=== PATIENT | female | born 1960 | race Caucasian/White ===

== ENCOUNTER 2019-11-07 22:12 | Emergency (ER) | payer BC, OTHER ==
[2019-11-07] MEDS ORDERED: TETRACAINE HCL 0.5% OPH SOLN 4 ML OD ONE (23:38)
[2019-11-07] MEDS ORDERED: DIPH/PERTUSS(ACELL)/TETANUS VAC/PF 0.5 ML SYR (>=10YO) IM ONE (23:56)
[2019-11-07] MEDS ORDERED: TOBRAMYCIN SULFATE/DEXAMETH OPH OINTMENT 3.5 GM OD ONE (23:57)
--- NOTE | 2019-11-08 00:03 | ER Document Report ---
ED Eye Complaint - General Chief Complaint: Eye Pain Stated Complaint: RIGHT EYE PAIN Time Seen by Provider: 11/07/19 23:37 Notes: CHIEF COMPLAINT: Right eye injury HPI: 59-year-old female presenting to the emergency department complaining of right eye injury tonight. Patient got soap in her right eye and while she was attempting to rinse the eye believe she may have scratched the eye it hurts to open the eye. She has had tearing discharge. Reports some blurred vision when looking down ROS: See HPI - all other systems were reviewed and are otherwise negative Constitutional: no fever Eyes: no drainage, + blurred vision, positive tearing ENT: no runny nose, no sore throat Integumentary: no rash Allergy: no hives MEDICATIONS: I agree with the patient medications as charted by the RN. ALLERGIES: I agree with the allergies as charted by the RN. PAST MEDICAL HISTORY/PAST SURGICAL HISTORY: Reviewed and agree as charted by RN. SOCIAL HISTORY: Reviewed and agree as charted by RN. FAMILY HISTORY: No significant familial comorbid conditions directly related to patient complaint EXAM: Reviewed vital signs as charted by RN. CONSTITUTIONAL: Alert and oriented and responds appropriately to questions. Well-appearing; well-nourished HEAD: Normocephalic; atraumatic EYES: PERRL; Conjunctivae injected right eye, sclerae non-icteric. No hyphema. Funduscopic exam does not reveal evidence of disc edema or hemorrhage. There is a small corneal abrasion in the right eye at approximately 5:00 over the edge of the iris. There does appear to be some fluorescein uptake over the lower half of the iris and lower sclera likely from chemical irritation from the soap ENT: normal nose; no rhinorrhea; moist mucous membranes; pharynx without lesions noted, no uvula edema or deviation, no tonsillar hypertrophy, phonation normal NECK: Supple without meningismus; non-tender; no cervical lymphadenopathy, no masses CARD: Capillary refill less than 3 seconds; symmetric distal pulses RESP: Normal chest excursion without splinting or tachypnea ABD/GI: non-distended BACK: The back appears normal EXT: Normal ROM in all joints; no cyanosis, no effusions, no edema SKIN: Normal color for age and race; warm; dry; good turgor NEURO: Moves all extremities equally; Motor and sensory function intact PSYCH: The patient's mood and manner are appropriate. Grooming and personal hygiene are appropriate. MDM: 59-year-old female with a small corneal abrasion and a chemical burn or irritation to the lower aspect of the right eye. Patient is allergic to erythromycin ointment does not list an allergy to tobramycin will place her on TobraDex, update tetanus status. She declines pain management states she does have an eye doctor that she can follow-up with on Saturday - Related Data Allergies/Adverse Reactions: azithromycin [From Zithromax] Allergy (Verified 11/07/19 22:23) ciprofloxacin [From Cipro] Allergy (Verified 11/07/19 22:23) erythromycin base Allergy (Verified 11/07/19 22:23) levofloxacin Allergy (Verified 11/07/19 22:23) nitrofurantoin [From Macrobid] Allergy (Verified 11/07/19 22:23) sulfamethoxazole [From Bactrim] Allergy (Verified 11/07/19 22:23) trimethoprim [From Bactrim] Allergy (Verified 11/07/19 22:23) cephalexin [From Keflex] Adverse Reaction (Verified 11/07/19 22:23) Past Medical History - Social History Smoking Status: Never Smoker Family History: Reviewed & Not Pertinent Patient has homicidal ideation: No Physical Exam - Vital signs Vitals: Temp Pulse Resp BP Pulse Ox 97.9 F 58 L 16 124/75 99 20 22:17 11/07/19 22:17 11/07/19 22:17 11/07/19 22:17 11/07/19 22:17 - HEENT Visual acuity- Right eye: unable to Visual acuity- Left eye: 20/30 -1 Visual acuity- Both eyes: 20/40 Corrective lenses worn: No - Does use eye correction Course - Vital Signs Vital signs: Temp Pulse Resp BP Pulse Ox 97.9 F 58 L 16 124/75 99 20 22:19 11/07/19 22:17 11/07/19 22:17 11/07/19 22:17 11/07/19 22:17 Discharge - Discharge Clinical Impression: Chemical burn of right eye Corneal abrasion Qualifiers: Encounter type: initial encounter Laterality: right Qualified Code(s): S05.01XA - Injury of conjunctiva and corneal abrasion without foreign body, right eye, initial encounter Condition: Stable Disposition: HOME, SELF-CARE Additional Instructions: The antibiotic ointment as prescribed. Take Motrin or Tylenol consistently for pain and discomfort. Follow-up with your eye doctor on Saturday for reevaluation of symptoms as discussed call for appointment return for any concerns Prescriptions: Tobramycin Sulfate/Dexameth [Tobradex Oph Ointment 3.5 Gm Tube] 0 applic OD BID #1 tube
[2019-11-08] MEDS ORDERED: TOBRAMYCIN SULFATE/DEXAMETH OPH SUSP 2.5 ML ONE (00:08)
[2019-11-08 00:35] VITALS: BP 120/70
== END 2019-11-08 00:35 | disposition home or self-care (01) ==
LOC: ER 22:12
DX: S05.01XA Injury of conjunctiva and corneal abrasion without foreign body, right eye, initial encounter (principal); H57.11 Ocular pain, right eye; X58.XXXA Exposure to other specified factors, initial encounter; Z88.3 Allergy status to other anti-infective agents; Z23 Encounter for immunization
CPT/HCPCS: 99283; 90471; 90715; J3490 ×3